=== PATIENT | female | born 1955 | race Native Hawaiian/Other Pacific Islander ===

== ENCOUNTER 2017-07-15 10:40 | Day surgery (SDC) | payer MEDICAID ==
[2017-07-12 11:39] VITALS: BMI 24.5
--- NOTE | 2017-07-15 12:26 | PCM.SURG1 ---
Surgeon's Initial Post Op Note - Surgeon's Notes Surgeon: Levar Crenshaw MD [place] Blower: NONE Type of Anesthesia: Local Pre-Operative Diagnosis: Thyroid nodules Operative Findings: US showed multiple left and right thyroid nodules. Largest left nodule is 1.6 cm. Post-Operative Diagnosis: Thyroid nodules Operation Performed: US guided FNA of left thyroid nodule Specimen/Specimens Removed: 25 g FNA x 4 Estimated Blood Loss: EBL {In ML}: 1 Blood Products Given: N/A Drains Used: No Drains Post-Op Condition: Good Date of Surgery/Procedure: 07/15/17 Time of Surgery/Procedure: 12:25
[2017-07-15 13:15] VITALS: BP 110/59; PULSE 75; RESP 18; TEMP 98; O2SAT 100
--- NOTE | 2017-07-18 11:04 | US ---
PROCEDURE: Date of Procedure: 07/15/2017 PROCEDURE: 1. Ultrasound guided FNA of left thyroid nodule, CPT 03865 2. Ultrasound guidance for FNA, 98294 Medications: 4cc 1% Lidocaine HISTORY: Enlarged left thyroid nodule. TECHNIQUE: Following informed consent and procedure time-out, a limited ultrasound patient's neck confirmed the presence of a 1.3 cm complex left thyroid nodule which is predominantly solid. After the patient's neck was prepped and draped in the usual sterile fashion, the skin was anesthetized with 1% lidocaine. Ultrasound-guided fine needle aspiration was then performed of the dominant left thyroid nodule. A total of 4 passes were made into the nodule with 25 gauge needle under ultrasound guidance. The FNA specimen was sent for routine pathology. Post biopsy ultrasound showed no hematoma. IMPRESSION: Ultrasound-guided FNA of the dominant left thyroid nodule.
== END 2017-07-15 13:05 | disposition home or self-care (01) ==
LOC: C.SPRAD 10:40
PROVIDERS: ATTEND Radiology Vascular & Interventional Radiology
DX: E04.1 Nontoxic single thyroid nodule (principal)